=== PATIENT | male | born 1995 | race African-American/Black ===

== ENCOUNTER 2016-08-17 15:42 | Emergency (ER) | payer MEDICAID ==
[2016-08-17 15:44] VITALS: BP 126/70; PULSE 106; RESP 16; TEMP 102.5; O2SAT 97
--- NOTE | 2016-08-17 17:12 | PD ---
HPI Chief Complaint: ENT Complaint Time Seen by Provider: 17:07 Travel History International Travel<30 days: No Contact w/Intl Traveler<30days: No Traveled to known affect area: No History of Present Illness HPI 21-year-old Afro-[place] male presents the emergency department with 2 day history of fever, chills, sore throat. Patient has not been able to eat for the past 2 days. Denies nausea, vomiting, or abdominal pain. He denies ear pain or significant headache. Able to drink water and is still urinating normally. Patient denies any specific sick exposures. He has no known drug allergies. [facility] Social History Alcohol Use: No Tobacco Use: No Substance Use: No Allergies-Medications (Allergen,Severity, Reaction): Coded Allergies: No Known Allergies (Unverified , 08/17/16) Reported Meds & Prescriptions Reported Meds & Active Scripts Active Ibuprofen 600 Mg Tab 600 Mg PO Q6H PRN Amoxicillin 875 Mg Tab 875 Mg PO BID Acetaminophen Extra Strength (Acetaminophen) 500 Mg Cap 1,000 Mg PO Q6H PRN Review of Systems Except as stated in HPI: all other systems reviewed are Neg General / Constitutional: Positive: Fever, Chills Eyes: No: Visual changes HENT: Positive: Sore Throat, No: Headaches, Rhinitis, Rhinorrhea, Congestion, Nosebleed, Neck Stiffness, Neck Pain, Ear Discharge, Earache Cardiovascular: No: Chest Pain or Discomfort Respiratory: No: Cough, Shortness of Breath, Wheezing Gastrointestinal: Positive: Loss of Appetite, No: Nausea, Vomiting, Diarrhea, Abdominal Pain Genitourinary: No: Dysuria Musculoskeletal: No: Pain Skin: No Rash Neurologic: No: Weakness Psychiatric: No: Depression Endocrine: No: Polydipsia Hematologic/Lymphatic: No: Easy Bruising Physical Exam Narrative GENERAL: Patient appears in no acute distress. SKIN: Warm and dry. Normal color. Normal turgor. HEAD: Atraumatic. Normocephalic. EYES: Pupils equal and round. No scleral icterus. No injection or drainage. ENT: No nasal bleeding or discharge. Mucous membranes pink and moist. Patient has moderate bilateral tonsillar swelling with injection and erythema as well as some mild yellow exudate. TMs are dull bilaterally but no injection. No sinus tenderness to palpation or percussion is noted. NECK: Trachea midline. Supple and nontender without significant lymphadenopathy. CARDIOVASCULAR: Regular rate and rhythm. RESPIRATORY: No accessory muscle use. Clear to auscultation. Breath sounds equal bilaterally. GASTROINTESTINAL: Abdomen soft, non-tender, nondistended. Hepatic and splenic margins not palpable. MUSCULOSKELETAL: Extremities without clubbing, cyanosis, or edema. No obvious deformities. NEUROLOGICAL: Awake and alert. No obvious cranial nerve deficits. Motor grossly within normal limits. Five out of 5 muscle strength in the arms and legs. Normal speech. PSYCHIATRIC: Appropriate mood and affect; insight and judgment normal. Data Data Last Documented VS Vital Signs Date Time Temp Pulse Resp B/P Pulse Ox O2 Delivery O2 Flow Rate FiO2 08/17/16 15:44 102.5 106 16 126/70 97 Room Air Orders Group A Rapid Strep Screen (08/17/16 16:50) Influenzae A/B Antigen (08/17/16 16:50) Acetaminophen (Tylenol) (08/17/16 18:00) Ibuprofen (Motrin) (08/17/16 18:00) MDM Medical Decision Making Medical Screen Exam Complete: Yes Emergency Medical Condition: Yes Differential Diagnosis Febrile illness. Strep pharyngitis. Influenza. Narrative Course Patient is medically stable at time of exam. Rapid strep and rapid influenza are sent to the lab. Rapid influenza is negative for influenza A and influenza B. Rapid strep is pending. Patient is treated with amoxicillin 875 twice a day 10 days. Patient is given ibuprofen and Tylenol take as well. Patient is to rest and push fluids and use ice chips popsicles as needed. Diagnosis Primary Impression: Pharyngitis, acute Qualified Code: J02.0 - Acute streptococcal pharyngitis Referrals: Primary Care Physician Patient Instructions: General Instructions Med/Other Pt SpecificInfo: Prescription(s) given Scripts Ibuprofen 600 Mg [id number] Mg PO Q6H PRN (Pain/Inflammation) #40 TAB Prov:Goyo Floyd MD 08/17/16 Amoxicillin 875 Mg Uoz171 Mg PO BID #20 TAB Prov:Goyo Floyd MD 08/17/16 Acetaminophen (Acetaminophen Extra Strength)500 Mg Cap1,000 Mg PO Q6H PRN (PAIN SCALE 4 TO 10) #60 CAP Ref 1 Prov:Goyo Floyd MD 08/17/16 Disposition: 01 DISCHARGE HOME Condition: Stable Dani Cee Aug 17, 2016 17:12 Dani Cee Aug 17, 2016 17:12
[2016-08-17] MEDS ORDERED: IBUPROFEN 800 MG TAB PO ONE (18:00)
[2016-08-17] MEDS ORDERED: ACETAMINOPHEN 500 MG CPLT PO ONE (18:00)
[2016-08-17] MEDS ORDERED: EXTR500C PO (18:05)
[2016-08-17] MEDS ORDERED: AMOX875T PO (18:05)
[2016-08-17] MEDS ORDERED: IBUP-232 PO (18:05)
== END 2016-08-17 18:13 | disposition home or self-care (01) ==
LOC: NEPB 15:42
DX: J02.0 Streptococcal pharyngitis (principal)
CPT/HCPCS: 87081; 87804; 87880; 99283

== ENCOUNTER 2016-08-19 01:59 | Emergency (ER) | payer BC, MEDICAID ==
[~2016-08-19] VITALS: Ht 180.3 cm; Wt 80.0 kg
[~2016-08-19 01:59] MED LIST: AMOX875T PO; EXTR500C PO; IBUP-232 PO
[2016-08-19 02:02] VITALS: BP 147/78; PULSE 94; RESP 16; TEMP 103.2; O2SAT 98
[2016-08-19] MEDS ORDERED: DEXAMETHASONE SOD PHOS 20 MG/5 ML VIAL IM ONE (02:45)
--- NOTE | 2016-08-19 02:59 | PD ---
HPI Chief Complaint: ENT Complaint Time Seen by Provider: 02:55 Travel History International Travel<30 days: No Contact w/Intl Traveler<30days: No Traveled to known affect area: No History of Present Illness HPI 21-year-old black male presents to emergency department a second time with complaints of sore throat, decreased appetite and general malaise. He states that he has not been able eat anything because he is had such a severe sore throat. He has been coughing up some white chunks of material which she states he thinks his tonsillar stones. He admits to subjective fever and chills, mild ear pain, and general malaise. He states that he's been sick now for approximately 5-6 days. He is seen in the emergency department a few days ago and had a influenza test done which was negative and a rapid strep which was negative. His throat culture today was read as negative. He is currently taking amoxicillin. PFSH Past Medical History Medical History: Denies Significant Hx Tetanus Vaccination: < 5 Years Past Surgical History Surgical History: No Previous Surgery Social History Alcohol Use: No Tobacco Use: No Substance Use: No Allergies-Medications (Allergen,Severity, Reaction): Coded Allergies: No Known Allergies (Unverified , 08/19/16) Reported Meds & Prescriptions Reported Meds & Active Scripts Active Ibuprofen 600 Mg Tab 600 Mg PO Q6H PRN Amoxicillin 875 Mg Tab 875 Mg PO BID Acetaminophen Extra Strength (Acetaminophen) 500 Mg Cap 1,000 Mg PO Q6H PRN Review of Systems Except as stated in HPI: all other systems reviewed are Neg Physical Exam Narrative GENERAL: Well-developed, well-nourished in no acute distress. Nontoxic appearing. HEAD: Normocephalic, atraumatic. EYES: Pupils equal round and reactive. Extraocular motions intact. No scleral icterus. No injection or drainage. ENT: TMs clear without erythema. The external auditory canals clear. Nose: clear . Posterior pharynx is erythematous and moist. No tonsillar edema there is some pale white exudate. Uvula midline. Airway patent. NECK: Trachea midline.Supple, nontender, moves head freely. No central bony tenderness or spasm. Positive cervical adenopathy CARDIOVASCULAR: Regular rate and rhythm without murmurs, gallops, or rubs. RESPIRATORY: Clear to auscultation. Breath sounds equal bilaterally. No wheezes , rales, or rhonchi. GASTROINTESTINAL: Abdomen soft, non-tender, nondistended. No hepato-splenomegaly , or palpable masses. No guarding. EXTREMITIES: No clubbing, cyanosis, or edema. No joint tenderness, effusion, or edema noted. BACK: Nontender without deformity or crepitance. No flank tenderness. Data Data Last Documented VS Vital Signs Date Time Temp Pulse Resp B/P Pulse Ox O2 Delivery O2 Flow Rate FiO2 08/19/16 02:02 103.2 94 16 147/78 98 Room Air Orders Monoscreen (08/19/16 02:34) Dexamethasone Inj (Decadron Inj) (08/19/16 02:45) Ynyj-Xkvc-Frbt Liq (Magic Mouthwash Adul (08/19/16 09:00) Wxzq-Toxn-Kfev Liq (Magic Mouthwash Adul (08/19/16 03:44) Labs Laboratory Tests Test 08/19/16 02:45 Monoscreen NEG MDM Medical Decision Making Medical Screen Exam Complete: Yes Emergency Medical Condition: Yes Medical Record Reviewed: Yes Interpretation(s) Laboratory Tests Test 08/19/16 02:45 Monoscreen NEG Differential Diagnosis MDM: High Differential diagnoses: Strep throat, viral pharyngitis, mono, peritonsillar abscess Narrative Course The patient would like to have a mono test done today. Patient is given Decadron 10 mg IM and Magic mouthwash. The mono was negative. This is viral pharyngitis Diagnosis Primary Impression: Viral pharyngitis Patient Instructions: General Instructions Additional Instructions: Rest. Force fluids. Saltwater gargles. Tylenol and Advil. Chloraseptic [place] Cepastat lozenge. Magic mouthwash. Follow-up with a primary care doctor in one week. Return to the ER if any problems. Med/Other Pt SpecificInfo: Prescription(s) given Scripts Muqqpgov-Cmmeghfiqrpfiaw-Mnwyvcqpo Liq (Magic Mouthwash Adult Liq)120 Ml Susp5 Ml SWISH-SWAL Q2HR #120 ML Each 5mL contains: Nystatin 200,000units, Diphenhydramine 4.25mg, Viscous Lidocaine 10mg, Gu[place] syrup 0.8 mL Prov:Genevieve Paez MD 08/19/16 Disposition: 01 DISCHARGE HOME Condition: Stable Harish Garcia Aug 19, 2016 02:59
[2016-08-19] MEDS ORDERED: NYSTAT/DIPHENHY/LIDO MOUTHWASH (Adult) 120ML SWISH-SWAL STA (03:44)
[2016-08-19] MEDS ORDERED: MAGICADU2 SWISH-SWAL (04:03)
[2016-08-19] MEDS ORDERED: NYSTAT/DIPHENHY/LIDO MOUTHWASH (Adult) 120ML SWISH-SWAL SCH (09:00)
== END 2016-08-19 04:25 | disposition home or self-care (01) ==
LOC: NEPB 01:59
DX: J02.9 Acute pharyngitis, unspecified (principal); R50.9 Fever, unspecified
CPT/HCPCS: 86308; 96372; 99283; J1100